=== PATIENT | male | born 1955 | race Two or more races ===

== ENCOUNTER 2018-03-18 22:12 | Emergency (ER) | payer OTHER ==
[~2018-03-18] VITALS: Ht 157.5 cm; Wt 99.8 kg
[~2018-03-18 22:12] MED LIST: AVAPRO300 MG; CATAPRES0.1 MG; GLIMEPIRIDE1 MG; LANTUS100 U/ML; TOPROL XL100 MG
[2018-03-18] MEDS ORDERED: ZOCOR5 MG (23:30)
[2018-03-18] MEDS ORDERED: HYZAAR 100-12.1 EACH (23:30)
[2018-03-18] MEDS ORDERED: KOMBIGLYZE XR1 EAC2 (23:30)
[2018-03-19] MEDS ORDERED: MAALOX MAXIMUM355 ML PO (03:04)
[2018-03-19] MEDS ORDERED: PEPCID40 MG PO (03:04)
== END 2018-03-19 03:05 | disposition home or self-care (01) ==
LOC: ER 22:12
DX: I16.0 Hypertensive urgency (principal); I10 Essential (primary) hypertension

== ENCOUNTER → 2018-03-21 | Outpatient (CLI) | payer OTHER ==
[~2018-03-21] MED LIST changes: +HYZAAR 100-12.1 EACH; +KOMBIGLYZE XR1 EAC2; +MAALOX MAXIMUM355 ML PO; +PEPCID40 MG PO; +ZOCOR5 MG
== END | disposition home or self-care (01) ==
LOC: NUCLEAR 07:00
DX: I11.9 Hypertensive heart disease without heart failure (principal); I25.10 Atherosclerotic heart disease of native coronary artery without angina pectoris; E11.9 Type 2 diabetes mellitus without complications
CPT/HCPCS: 78452; 93017; A9500; J0153